=== PATIENT | male | born 1960 | race Caucasian/White ===

== ENCOUNTER 2018-07-11 06:45 | Inpatient (IN) ==
[2018-07-01 13:22] LABS: HEMATOCRIT 46.5 % (42.0-52.0); HEMOGLOBIN 15.9 g/dL (14.0-18.0); MCH 32.9 PG (27-31); MCHC 34.2 g/dL (33-37); MCV 96.3 FL (81-99); MPV 9.2 FL (7.4-10.4); RBC 4.83 XMIL (4.7-6.1); RDW 13.2 % (11.5-14.5); WBC 8.54 X1000 (4.8-10.8)
[2018-07-01 14:20] LABS: AGAP 10; BUN 7 mg/dL (8-22); CALCIUM 8.8 mg/dL (8.8-10.2); CHLORIDE 113 mmol/L (98-107); COSMO 283; CREATININE 1.2 mg/dL (0.7-1.2); ESTIMATED GFR > 60; GLUCOSE 98 mg/dL (70-104); SODIUM 143 mmol/L (136-145); TCO2 20 mmol/L (25-35)
[2018-07-11] MEDS ORDERED: ENTEREG ONE (07:04)
[2018-07-11] MEDS ORDERED: LR 1,000 ML ONE ×2 (07:04→09:42)
[2018-07-11] MEDS ORDERED: INVANZ 1 GM/NS 1 GM/50 ML IVPB ONE (07:04)
[2018-07-11] MEDS ORDERED: INVANZ 1 GM/NS 1 GM/50 ML IVPB IV ONE (08:00)
[2018-07-11] MEDS ORDERED: FENTANYL ONE (08:39)
[2018-07-11] MEDS ORDERED: VERSED ONE (08:39)
[2018-07-11] MEDS ORDERED: DIPRIVAN 1% ONE (08:40)
[2018-07-11] MEDS ORDERED: MARCAINE 0.25% PF/EPI 1:200,000 ONE (09:42)
[2018-07-11] MEDS ORDERED: XYLOCAINE-MPF 2% ONE (11:12)
[2018-07-11] MEDS ORDERED: STERILE WATER INJ. ONE (11:12)
[2018-07-11] MEDS ORDERED: ZOFRAN ONE (11:12)
[2018-07-11] MEDS ORDERED: OFIRMEV 1000 MG/ISOTONIC SOLN 1,000 MG/100 ML BOTTLE ONE (11:12)
[2018-07-11] MEDS ORDERED: NORCURON ONE (11:12)
[2018-07-11] MEDS ORDERED: QUELICIN (DOSE) ONE (11:12)
[2018-07-11] MEDS ORDERED: DECADRON ONE (11:12)
[2018-07-11] MEDS ORDERED: ROBINUL ONE (11:12)
[2018-07-11] MEDS ORDERED: NEOSTIGMINE ONE (11:13)
[2018-07-11] MEDS ORDERED: MORPHINE ONE (11:33)
[2018-07-11] MEDS ORDERED: LASIX ONE (12:18)
[2018-07-11 13:23] LABS: URINE SOURCE CATH
[2018-07-11 13:26] LABS: BILIRUBIN URINE NEGATIVE (NEGATIVE); BLOOD URINE NEGATIVE (NEGATIVE); COLOR YELLOW; GLUCOSE URINE NEGATIVE (NEGATIVE); KETONE URINE NEGATIVE (NEGATIVE); LEUKOCYTES URINE NEGATIVE (NEGATIVE); NITRITE URINE NEGATIVE (NEGATIVE); PH URINE 5.5; PROTEIN URINE NEGATIVE (NEGATIVE); SP GRAVITY URINE 1.018; TURBIDITY URINE CLEAR (CLEAR); UROBILINOGEN URINE NORMAL (NORMAL)
[2018-07-11 13:27] LABS: UR EPITHELIAL CELLS <10 /HPF (<10); URINE BACTERIA NEGATIVE /HPF; URINE RBC <10 /HPF (<10); URINE WBC <10 /HPF (<10)
[2018-07-11] MEDS ORDERED: D5 LR 1,000 ML ONE (14:19)
[2018-07-11] MEDS ORDERED: ZOFRAN IV PRN (15:38)
[2018-07-11] MEDS ORDERED: IMITREX PO PRN (15:38)
[2018-07-11] MEDS: D5 LR 1,000 ML IV SCH (16:00)
[2018-07-11] MEDS: ULTRAM PO PRN (18:31)
[2018-07-11] MEDS: OFIRMEV 1000 MG/ISOTONIC SOLN 1,000 MG/100 ML BOTTLE IV SCH ×2 (18:31→21:43)
--- NOTE | 2018-07-11 19:44 | OPERATIVE NOTE ---
PROCEDURE DATE: 07/11/2018 PREOPERATIVE DIAGNOSIS: History of diverticulitis. POSTOPERATIVE DIAGNOSIS: History of diverticulitis. PROCEDURE: Laparoscopic-assisted robotic low anterior colon resection with mobilization of the splenic flexure. SURGEON: Austin Kevin MD. HEALTHCARE INTERPRETER: Kaylin Noel MD. ANESTHESIA: General. ESTIMATED BLOOD LOSS: 25 mL. COMPLICATIONS: None apparent. SPECIMENS: Portion of descending colon and sigmoid colon with upper rectum included as well. FINDINGS: The sigmoid colon had multiple diverticula without acute diverticulitis present. At the conclusion, the EEA stapler revealed 2 intact donuts and a leak test was negative for any anastomotic leak. TECHNIQUE: The patient was brought to the operating room and placed supine on the table and general anesthesia was induced. He was then placed in stirrups and a Villarreal catheter was placed. He was prepped and draped in usual sterile fashion. 0.25% Marcaine with epinephrine was used to anesthetize our incisions. A 5 mm incision was made in the right upper quadrant. The peritoneal cavity was then entered under direct vision with the Optiview device. Pneumoperitoneum was established. The camera was inserted. There was no evidence of injury to underlying structures. An 11 mm incision port was placed a couple fingerbreadths above and to the right of the umbilicus. A 15 mm incision port was placed in the right lower quadrant. An 8 mm incision port was placed under direct vision, one in the left lateral abdomen, left upper quadrant and right epigastrium to the right of midline. The robot was brought in and docked to the ports and I went to the console. The patient had already been placed in slight reverse Trendelenburg and left rotation. I proceeded to mobilize the splenic flexure, lifting up the gastrocolic ligament and dividing it with scissors and cautery and entering the lesser sac. I continued dividing the gastrocolic ligaments. These were divided and I came around the splenic flexure in this manner. Also continued dividing the splenic colic and renal colic attachments with scissors and cautery and the vessel sealer sweeping the splenic flexure of the colon inferiorly and medially. I began going down the superior aspect of the white line of Toldt. Once I felt like I had adequate mobilization to where the splenic flexure could mobilize to the midline, I then proceeded to have the robot undocked, the patient placed in Trendelenburg and left rotation and then the robot was re-docked for the rest of the procedure. I lifted up the pedicle of the inferior mesenteric artery and incised the peritoneum over it with scissors and cautery. I then used the vessel sealer to dissect around the inferior mesenteric artery and inferior mesenteric vein and divided them with vessel sealer near the root. I identified the left ureter prior to dividing the vessels and safely stayed away from it. I then mobilized the descending colon and sigmoid colon from lateral to medial direction, incising the lateral peritoneal attachments along the white line of Toldt with scissors and cautery and continued this from distally at the rectosigmoid junction up to the beginning of the descending colon where the splenic flexure mobilization had occurred. I swept the descending colon off of the retroperitoneum to where it reached the midline. I continued from a lateral to medial direction, freeing the sigmoid colon off of the pelvic brim and left lateral sidewall. Also paid attention to the position of the left ureter throughout this portion of procedure. Once the descending colon and sigmoid colon were completely mobilized, I then proceeded to incise the peritoneum on the left and right side of the proximal rectal mesentery, down to a point near the midportion of the rectum. I then used the vessel sealer to dissect underneath the rectum until there was a window created at the border of the serosa and mesentery. I brought the robotic stapler in and divided the rectum at this point. I then proceeded to divide the intervening mesentery of the proximal rectum and sigmoid colon with the LigaSure device. I selected an area for proximal transection at the descending colon sigmoid junction. There did not appear to be any significant diverticula proximal to this point. The mesentery distal to this point had already been divided by the LigaSure. A grasper was placed at this point, a grasper was placed on the cut end of the rectum. ICG dye was infused intravenously and we did an intraoperative fluoroscopy which showed good blood flow to the colon at our proposed proximal transection point. I then rejoined the sterile field. The robot was undocked. I lengthened the left lateral port site incision to about 4 cm first with a knife and then with cautery through the subcutaneous tissues. I then removed the port and placed my finger through the fascial defect and divided the muscle and fascia with cautery. A small wound protector was placed along with sterile towels around it. The distal stapled end of the rectum was then directed up to this incision. I grasped it with a Rosy clamp and exteriorized it, bringing the whole specimen out. I also noted the point of proximal transection. I divided the remaining very terminal mesenteric vessels with cautery and suture ligated them with 3-0 silk. A pursestring device was then placed proximally distally. The colon was divided with curved Ignacio scissors and the specimen was passed off the field. I then sized the bowel up to a size 31. The anvil was placed in the bowel and the pursestring device was sewn securely around the anvil. The fat was cleared off of the serosa overlying the edge of the anvil circumferentially. I then dropped this back into the abdomen and closed in 2 layers with a #1 Vicryl running suture for the peritoneum and posterior fascia and a #1 Maxon suture for the anterior fascia. We then re-insufflated and I went back to the console. The robot was brought in and re-docked to the ports. Dr. Noel was present at this point and assisted me with the anastomosis, Dr. Noel passed the blunt sizers up to the stapled end of the rectum and then passed the EEA stapler up to this end. I brought the proximal colon with the anvil down to it. There was no tension. It was not twisted in any way. Dr. Noel then advanced the male end through the staple line of the rectum and I was able to mate the anvil with the male end and Dr. Noel then clamped down with the stapler and fired it. He removed the stapler and reported to me that there were 2 intact circular donuts. I then clamped off the colon proximal to the anastomosis and instilled saline into the pelvis, putting the anastomosis under saline. Dr. Noel then insufflated air into the rectum across the anastomosis without any evidence of bubbles leaking through. We suctioned out the saline. I checked for any bleeding, there appeared to be none. The bowel appeared to be in good order without any concern for bowel injury. I then rejoined the sterile field. The robot was undocked and removed. The instruments were all removed. We removed all the ports. I closed the camera port site fascia with 0 Vicryl and I closed the stapler port site fascia with a [id number] 0 Vicryl. The skin was closed with 4-0 subcuticular Monocryl and Steri-Strips. I should also point out that Diana Mcrae, a 3rd year medical student, also assisted with the closure of the skin at the conclusion of the case. There were no apparent complications. He was awakened in stable condition and transferred to the recovery room. cc: Austin Kevin MD
[2018-07-11] MEDS: PERIDEX MT SCH (21:43)
[2018-07-11] MEDS: DILAUDID IV PRN (21:43)
[2018-07-11] MEDS: LOVENOX SUBQ SCH (21:43)
[2018-07-12] MEDS: OFIRMEV 1000 MG/ISOTONIC SOLN 1,000 MG/100 ML BOTTLE IV SCH ×2 (02:44→08:42)
[2018-07-12] MEDS: D5 LR 1,000 ML IV SCH (02:44)
[2018-07-12] MEDS: DILAUDID IV PRN ×2 (02:44→11:20)
[2018-07-12 06:37] LABS: HEMATOCRIT 38.5 % (42.0-52.0); HEMOGLOBIN 13.7 g/dL (14.0-18.0); MCH 33.3 PG (27-31); MCHC 35.6 g/dL (33-37); MCV 93.4 FL (81-99); MPV 9.5 FL (7.4-10.4); RBC 4.12 XMIL (4.7-6.1); RDW 12.7 % (11.5-14.5); WBC 10.73 X1000 (4.8-10.8)
[2018-07-12 07:23] LABS: AGAP 10; BUN 9 mg/dL (8-22); CALCIUM 8.5 mg/dL (8.8-10.2); CHLORIDE 103 mmol/L (98-107); COSMO 272; CREATININE 0.9 mg/dL (0.7-1.2); ESTIMATED GFR > 60; GLUCOSE 148 mg/dL (70-104); POTASSIUM 3.8 mmol/L (3.5-5.1); SODIUM 135 mmol/L (136-145); TCO2 22 mmol/L (25-35)
[2018-07-12] MEDS: ULTRAM PO PRN (07:46)
[2018-07-12] MEDS: PERIDEX MT SCH (08:42)
[2018-07-12] MEDS: TOPAMAX PO SCH (08:43)
[2018-07-12] MEDS: ENTEREG PO SCH (08:43)
--- NOTE | 2018-07-12 12:52 | GENERAL SURGERY PROGRESS NOTE ---
DATE: 07/12/2018 SUBJECTIVE: He has had some off and on abdominal pain throughout the night and morning, but seems to be managing with tramadol and breakthrough Dilaudid. He has had some nausea here and there, and belching, but has been able to tolerate some clear liquids without vomiting. No flatus yet. He has made it up to a chair this morning. OBJECTIVE: Vital Signs: Afebrile. Vital signs are stable. General: He is awake, alert. He is oriented x4. No acute distress. Respiratory: No work of breathing. Cardiovascular: Regular rate and rhythm. Gastrointestinal: Soft and nondistended. Appropriately tender. Incisions are clean, dry, and intact. LABORATORY DATA: White blood cell count 10, hemoglobin 13.7, hematocrit 38. Electrolytes reviewed and unremarkable. ASSESSMENT AND PLAN: A 57-year-old male postoperative day 1 robotic low anterior colon resection. He appears to be making appropriate progress. We will discontinue the Villarreal catheter today. Continue a liquid diet as tolerated and encouraged ambulation. cc: Austin Kevin MD
[2018-07-13] MEDS: D5 LR 1,000 ML IV SCH ×3 (00:04→19:00)
[2018-07-13] MEDS: ULTRAM PO PRN ×3 (00:12→18:59)
[2018-07-13] MEDS: DILAUDID IV PRN (07:51)
[2018-07-13] MEDS: ENTEREG PO SCH ×3 (08:04→20:55)
[2018-07-13] MEDS: TOPAMAX PO SCH (08:04)
[2018-07-13] MEDS: PERIDEX MT SCH ×3 (08:04→20:56)
--- NOTE | 2018-07-13 09:37 | PROGRESS NOTE ---
DATE: 07/13/2018 SUBJECTIVE: Mr. Downing is now postop day 2 from a robotic assisted low anterior colon resection for diverticulitis. He looks well. He is sitting up in a chair. He has ambulated in the halls. He has had no flatus. OBJECTIVE: Vital Signs: His heart rate is 63, blood pressure 147/88, O2 saturation 97%. He is afebrile. Abdomen: His trocar sites and small incisions are all intact. His abdomen is slightly distended but not tightly. He is tolerating a GI soft diet. Will allow him to be active today and continue his IV fluids until we are sure that he has bowel activity. He states that he is belching but no flatus. Overall, I think he is doing very well postoperatively. cc: MD Austin Briseno MD
[2018-07-13] MEDS: LOVENOX SUBQ SCH (20:57)
[2018-07-14 07:34] VITALS: BP 149/88
[2018-07-14] MEDS: TOPAMAX PO SCH (08:39)
[2018-07-14] MEDS: PERIDEX MT SCH (08:39)
[2018-07-14] MEDS: ENTEREG PO SCH (08:39)
--- NOTE | 2018-07-14 11:14 | DISCHARGE SUMMARY ---
ADMISSION DATE: 07/11/2018 DISCHARGE DATE: 07/14/2018 ADMITTING DIAGNOSIS: Sigmoid diverticulitis. PRINCIPAL PROCEDURE: Laparoscopic-assisted robotic low anterior colon resection with mobilization of the splenic flexure per Dr. Kevin, 07/11/2018. DISCHARGE DISABILITY: Full. DISCHARGE MEDICATIONS: He is to return to his home medications. DISCHARGE DIET: Regular. DISCHARGE DISPOSITION: He will see us in our outpatient office in a week. HOSPITAL COURSE: Mr. Dany Downing underwent a bowel prep prior to his presentation. He presented on the day of surgery, 07/11/2018, and underwent the above procedure with a stapled end- to-end 31 mm anastomosis. After surgery, he went to the recovery room. An NG tube or abdominal drains were not used, and after the recovery room, he was hospitalized on the [address] [place] [address] [place]. We felt that his postoperative convalescence was excellent, and on the day of discharge, he was able to ambulate in the halls, he was having bowel function, and he was tolerating a regular diet. His trocar sites and small incision were healing well without evidence of problems. At discharge, his heart rate was 59, blood pressure 149/88, O2 saturation 98%, and he was afebrile. He was voiding without difficulty, and his abdomen was mostly soft. He knows to contact us with any problems, such as fever or abdominal pain. cc: MD Austin Briseno MD
== END 2018-07-14 09:45 | disposition home or self-care (01) | DRG 331 ==
LOC: OR 06:45 → 4N 06:45 → OBSVTOIN 12:31
PROVIDERS: ADMIT Surgery; ATTEND Surgery
CPT/HCPCS: 80048; 81001; 85027; 86850; 86900; 86901; 88307; 88313; 94761; 97162; A9270; J0131; J0330; J1100; J1170; J1335; J1650; J1940; J2250; J2270; J2405; J3010; J7120; J7121; S2900